=== PATIENT | female | born 1980 | race Caucasian/White ===

== ENCOUNTER → 2018-06-17 | Outpatient (CLI) | payer OTHER | LOC: LAB 15:26 | PROVIDERS: ATTEND Nurse Practitioner Family | DX: N92.6 Irregular menstruation, unspecified (principal) | CPT/HCPCS: 36415; 84703 ==

== ENCOUNTER → 2018-12-05 | Outpatient (CLI) | payer OTHER ==
--- NOTE | 2018-12-05 11:00 | NUR ---
PT AMBULATED TO WS FOR RHOGAM INJECTION.
--- NOTE | 2018-12-05 11:30 | NUR ---
PT AMBULATED TO ROOM 314. RHOGAM INJECTIONS GIVEN IN LT.GM. SEE ADMINISTRATION INTERVENTION FOR FURTHER. PT TOLERATED. AMBULATED TO PRIVATE VEHICLE.
== END ==
LOC: WSo 10:52
PROVIDERS: ATTEND Obstetrics & Gynecology
DX: Z31.82 Encounter for Rh incompatibility status (principal)
CPT/HCPCS: 96372

== ENCOUNTER 2019-01-18 23:42 | Inpatient (IN) | payer OTHER ==
[~2019-01-18] VITALS: Ht 154.9 cm; Wt 115.7 kg
[2019-01-19] VITALS (14 sets, daily range): BP systolic 96–121; BP diastolic 51–80
--- NOTE | 2019-01-19 | NUR ---
SUDARSHAN ASHLEY presented to unit via ambulatory from ED, accompanied by family , with c/o srom around 2315. SUDARSHAN ASHLEY weighed, gowned, voided, and to bed. EFHM and TOCO applied, VS taken. SUDARSHAN ASHLEY oriented to bed controls, call light, TV, heat, and A/C controls.
[2019-01-19] MEDS ORDERED: CITRIC ACID/SOB CIT (BICITRA) 30 ML UDC ONE (00:08)
[2019-01-19] MEDS ORDERED: METOCLOPRAMIDE INJ 10 MG/2 ML (REGLAN) ONE (00:08)
[2019-01-19] MEDS ORDERED: FAMOTIDINE 20MG/2ML IV (PEPCID) ONE (00:09)
--- NOTE | 2019-01-19 00:11 | NUR ---
notified of pt's arrival and exam. order to admit for repeat section received.
[2019-01-19] MEDS ORDERED: LACTATED RINGERS 1,000 ML IV PRN (00:28)
[2019-01-19] MEDS ORDERED: CITRIC ACID/SOB CIT (BICITRA) 30 ML UDC PO ONE (00:30)
[2019-01-19] MEDS ORDERED: FAMOTIDINE 20MG/2ML IV (PEPCID) IV ONE (00:30)
[2019-01-19] MEDS ORDERED: METOCLOPRAMIDE INJ 10 MG/2 ML (REGLAN) IV ONE (00:30)
[2019-01-19 00:45] LABS: BASOPHILS % (AUTO) 0 % (0-10); EOSINOPHILS # (AUTO) 0.1 10^3/uL (0.0-0.3); EOSINOPHILS % (AUTO) 1 % (0-10); HEMATOCRIT 37 % (35-52); HEMOGLOBIN 12.9 G/DL (11.5-16.0); LYMPHOCYTES # (AUTO) 2.1 X 10^3 (1.0-4.0); LYMPHOCYTES % (AUTO) 15 % (12-44); MEAN CORPUSCULAR HEMOGLOBIN 30 PG (25-34); MEAN CORPUSCULAR HGB CONC 35 G/DL (32-36); MEAN CORPUSCULAR VOLUME 84 FL (80-99); MEAN PLATELET VOLUME 8.7 FL (7.4-10.4); MONOCYTES # (AUTO) 0.9 X 10^3 (0.0-1.0); MONOCYTES % (AUTO) 7 % (0-12); NEUTROPHILS # (AUTO) 10.6 X 10^3 (1.8-7.8); NEUTROPHILS % (AUTO) 77 % (42-75); PLATELET COUNT 382 10^3/uL (130-400); RED CELL DISTRIBUTION WIDTH 13.4 % (10.0-14.5); WHITE BLOOD COUNT 13.8 10^3/uL (4.3-11.0)
--- NOTE | 2019-01-19 01:52 | NUR ---
notified that or room is getting prepared.
[2019-01-19] MEDS ORDERED: fentaNYL INJECTION 100 MCG/2 ML AMP ONE (02:03)
[2019-01-19] MEDS ORDERED: OXYTOCIN/NORMAL SALINE 1,000 ML IV ONE (02:04)
[2019-01-19] MEDS ORDERED: D5 LR IV SOLUTION 1,000 ML IV SCH ×2 (02:08→02:10)
[2019-01-19] MEDS ORDERED: metroNIDAZOLE 500MG/100ML IVPB 100 ML IV ONE (02:15)
[2019-01-19] MEDS ORDERED: TETANUS,DIPTH,PERTUSS P/F (BOOSTRIX) 0.5 ML VIAL IM ONE (02:15)
[2019-01-19] MEDS ORDERED: MEASLES,MUMPS,RUBELLA 1 EA INJ SC ONE (02:15)
[2019-01-19] MEDS ORDERED: ONDANSETRON 4 MG/2 ML (SDV) Z0FRAN IVP PRN (02:15)
[2019-01-19] MEDS ORDERED: ceFAZolin INJECTION 2,000 MG in WATER (STERILE) FOR INJECTION 10 ML IV ONE (02:15)
[2019-01-19] MEDS ORDERED: oxyCODONE/APAP 10/325MG (PERCOCET 10) TABLET PO PRN (02:15)
--- NOTE | 2019-01-19 02:15 | History & Physical ---
History and Physical Date Seen by Provider: Jan 19, 2019 Time Seen by Provider: 02:13 This patient is a 38-year-old 1 white female with a due date of 1018 putting her now at 35-2/7 weeks' gestation. She presented with complaint of spontaneous rupture membranes. She had a large gush of clear fluid evaluation here labor and delivery was positive for rupture. Patient's has been otherwise uncomplicated she denies bleeding. GBS culture has not been done yet. She is admitted now for repeat delivery. Allergies are none Medications are vitamins Medical social and surgical histories are per the antepartum record HEENT exam is normal Neck is supple no lymphadenopathy no thyromegaly Abdomen is gravid soft nontender nondistended Extremities show no clubbing or cyanosis. There is no Homans sign. Pelvic exam is deferred. Exam on admission per the labor and delivery nurse confirmed rupture membranes. Cervix was 1 cm very high. Laboratory Tests 01/19/19 00:35 Assessment and plan P PROM at 35-2/7 weeks' gestation in a patient with previous . She is admitted now for repeat delivery. Surgical risks and complications recovery and follow-up have been fully discussed. Patient is ready to proceed. P PROM at 35-2/7 weeks' gestation with a previous delivery Allergies and Home Medications Allergies Coded Allergies: No Known Drug Allergies (Verified Allergy, Unknown, 08/18/09) Patient Home Medication List Home Medication List Reviewed: Yes Clinical Quality Measures DVT/VTE Risk/Contraindication: Risk Factor Score Per Nursin RFS Level Per Nursing on Admit: 2=Moderate VALERIA WARD MD Jan 19, 2019 02:15
[2019-01-19] MEDS ORDERED: DEXAMETHASONE 10 MG/ML (DECADRON) 1 ML VIAL ONE (02:46)
[2019-01-19] MEDS ORDERED: KETOROLAC 30 MG/ML VIAL ONE ×2 (02:46→02:56)
[2019-01-19] MEDS ORDERED: ONDANSETRON 4 MG/2 ML (SDV) Z0FRAN ONE (02:46)
[2019-01-19] MEDS ORDERED: PHENYLEPHRINE 100 MCG/ML 10 ML (ANESTHESIA) SYR ONE ×2 (02:46→02:56)
[2019-01-19] MEDS: KETOROLAC 30 MG/ML VIAL IVP PRN ×3 (03:20→15:52)
[2019-01-19] MEDS ORDERED: ONDANSETRON 4 MG/2 ML (SDV) Z0FRAN IV PRN (03:30)
[2019-01-19] MEDS ORDERED: METOCLOPRAMIDE INJ 10 MG/2 ML (REGLAN) IV PRN (03:30)
[2019-01-19] MEDS ORDERED: NALOXONE 0.4 MG/ML 1 ML (NARCAN) VIAL IV PRN ×2 (03:30)
[2019-01-19] MEDS ORDERED: diphenhydrAMINE 50 MG/ML INJ (BENADRYL) IV PRN (03:30)
--- NOTE | 2019-01-19 03:54 | OPERATIVE REPORT ---
DATE OF SERVICE: 01/19/2019 DELIVERY/OPERATIVE NOTE PREOPERATIVE DIAGNOSIS: A 35 and 2/7 weeks' gestation with previous and PPROM. POSTOPERATIVE DIAGNOSIS: A 35 and 2/7 weeks' gestation with previous and PPROM. OPERATIVE PROCEDURE: Repeat low transverse delivery of a viable male infant with Apgars of 7 and 7 at 1 and 5 minutes respectively. Weight is pending. time of 0255 and a cord blood gas of 7.11. OPERATIVE DESCRIPTION: With the patient in the supine position under satisfactory spinal analgesia, she was positioned supine and then prepped and draped in the usual fashion for abdominal surgery. The towel clamps were placed on the large panniculus at the upper end of the right and left lower quadrants and those were attached to stanchions at the head of the bed to retract the panniculus and expose the lower abdomen. A repeat Pfannenstiel incision was made through the skin with scalpel, the patient's abdomen was entered in the usual manner. Bladder retractor placed into position and clean scalpel used to make a 4 cm hysterotomy incision transversely across the lower uterine segment that was extended by blunt dissection as well, very minimal amniotic fluid was released. A viable male was delivered via the uterine incision. Infant had a nuchal cord x1 that was easily released. The infant was bulb suctioned on delivery of the head and again on completion of the delivery. Umbilical cord was doubly clamped and cut and the infant passed to the bun panner in attendance for delivery. Cord bloods were obtained. Placenta delivered spontaneously [place], it was normal with 3-vessel cord. The uterus was exteriorized and interior wiped clean with a wet laparotomy sponge. Uterine incision closed with running locked suture of 2-0 Vicryl. Hemostasis was complete. The uterus was returned to the abdominal cavity. All blood clot and debris removed from the abdominal cavity. With sponge, needle counts correct, hemostasis assured. The anterior parietal peritoneum was closed with running suture of 2-0 Vicryl. Rectus muscles were closed with that suture as well. The rectus fascia was closed with 2-0 Vicryl, subcutaneous tissue was closed with 2-0 Vicryl and the skin was stapled. Sponge and needle counts were correct on completion of the procedure. Estimated blood loss was around 400 mL. The patient tolerated the procedure well and was transferred to the recovery room in stable condition. The infant had been taken stable to the full term nursery under the care of the bun panner Job ID: [id number] DocumentID: [id number] Dictated Date: 01/19/2019 03:21:35 [employer] Tech Date: 01/19/2019 03:53:08 Dictated By: VALERIA WARD MD MTDD
[2019-01-19] MEDS ORDERED: OXYTOCIN/NORMAL SALINE 500 ML IV ONE (04:20)
--- NOTE | 2019-01-19 04:25 | NUR ---
pt returned to room 308 from recovery. report received from acetone recovery worker. pt orientated to room. pt denies any needs at this time. family let in to be at pt's bed side.
[2019-01-19] MEDS: OXYTOCIN/NORMAL SALINE 500 ML IV SCH (04:30)
--- NOTE | 2019-01-19 05:30 | NUR ---
pericare completed. ff 1 below. moderate rubra noted.
--- NOTE | 2019-01-19 06:38 | NUR ---
pt very tearful about nb's transfer. denies any needs at this time. will continue to monitor.
[2019-01-19] MEDS ORDERED: PREN-8 PO (07:10)
--- NOTE | 2019-01-19 08:50 | NUR ---
PT REMAINS IN BED. VS OBTAINED. INITIAL SHIFT ASSESSMENT COMPLETED; SEE INTERVENTION FOR FURTHER. WILL RETURN SHORTLY WITH SCHEDULED MEDICATIONS. PT DENIES ANY CURRENT NEEDS. CALL LIGHT WITHIN REACH.
--- NOTE | 2019-01-19 09:01 | NUR ---
VISITORS TO PT'S BEDSIDE.
--- NOTE | 2019-01-19 09:18 | NUR ---
RT TO PT'S BEDSIDE TO INITIATE INCENTIVE SPIROMETRY.
[2019-01-19] MEDS: DOCUSATE SODIUM 100 MG (COLACE) CAP PO SCH ×2 (09:37→20:50)
--- NOTE | 2019-01-19 10:50 | NUR ---
DR. WARD CALLED UNIT FOR PT UPDATE. NO NEW ORDERS RECEIVED.
--- NOTE | 2019-01-19 12:35 | NUR ---
PT IN BED. VS OBTAINED. PT ASSISTED UP TO THE BATHROOM. + VOID, + PERICARE PER PT. NEW VPAD AND PANTIES ON. PT BACK TO BED. SCDS ON CALVES BILATERALLY. FRESH ICE WATER PROVIDED. NO NEEDS VOICED. CALL LIGHT WITHIN REACH.
--- NOTE | 2019-01-19 15:54 | NUR ---
ROUTINE TORADOL GIVEN IVP; SEE EMAR FOR FURTHER. VS OBTAINED. VISITORS TO PT'S BEDSIDE. NO NEEDS VOICED AT THIS TIME.
--- NOTE | 2019-01-19 17:52 | NUR ---
BREAST PUMP SET UP FOR PT USE. PT DENIES ANY NEEDS OR QUESTIONS AT THIS TIME.
--- NOTE | 2019-01-19 20:02 | NUR ---
pt resting in bed. assessment completed. encouraged pt to walk in the halls this evening. pt denies any concerns or needs at this time. will continue to monitor.
[2019-01-19] MEDS: IBUPROFEN 800 MG (MOTRIN) TAB PO SCH (21:15)
--- NOTE | 2019-01-19 21:30 | NUR ---
pt up ambulating in the vang. made two laps around nurses station. pt tolerated ambulation well.
--- NOTE | 2019-01-19 22:00 | NUR ---
on unit to round on patient. no new orders received.
[2019-01-20 00:28] VITALS: BP 99/49
[2019-01-20] MEDS: IBUPROFEN 800 MG (MOTRIN) TAB PO SCH ×2 (03:17→07:52)
[2019-01-20 03:26] VITALS: BP 112/56
[2019-01-20] MEDS ORDERED: TETANUS,DIPTH,PERTUSS P/F (BOOSTRIX) 0.5 ML VIAL IM ONE (07:42)
[2019-01-20 07:52] VITALS: BP 113/57
[2019-01-20] MEDS: DOCUSATE SODIUM 100 MG (COLACE) CAP PO SCH (07:52)
--- NOTE | 2019-01-20 07:52 | NUR ---
AM shift assessment completed and vital signs obtained, see interventions. Plan of care reviewed with patient. Patient verbalizes understanding and denies any current questions or concerns at this time. Scheduled Motrin and Colace PO given. TDAP administered, see EMAR, VIS sheet provided to patient. Shower supplies provided.
--- NOTE | 2019-01-20 07:58 | Anesthesia-Regional Post-Op ---
Regional Patient Condition Mental Status: Alert, Oriented x3 Circulation: Same as Pre-Op Headache: Absent Sensation: Full Recovery Motor Block: Absent Post Op Complications Complications None Follow Up Care/Instructions Patient Instructions None needed. Anesthesia/Patient Condition Patient is doing well, no complaints, stable vital signs, no apparent adverse anesthesia problems. No complications reported per nursing. ALOK RENTERIA CRNA Jan 20, 2019 07:58
--- NOTE | 2019-01-20 08:26 | NUR ---
Dr. Zayas here to see patient.
--- NOTE | 2019-01-20 08:34 | Progress Note ---
Standard Progress Note Progress Notes/Assess & Plan Date Seen by a Provider: Jan 19, 2019 Time Seen by a Provider: 22:00 Progress/Assessment & Plan This patient is without complaint. She is ambulating, voiding, tolerating oral intake well has good pain control. She denies chest pain, denies shortness of breath, denies nausea vomiting, and denies headache patient reports that her baby is doing well in the NICU at [facility] in [place]. Vital Signs 01/20/19 03:26 Temp 98.7 Pulse 89 Resp 18 B/P (MAP) 112/56 (74) Pulse Ox 97 O2 Delivery Room Air Vital signs are stable. Patient is afebrile. The abdomen is benign. The surgical incision is clean dry and intact. Extremities show no clubbing or cyanosis. There is no Homans sign. There is minimal pretibial pitting edema. Assessment and plan postoperative day 1 status post repeat delivery about 3 a.m. on this date. Patient is doing well. Her baby is doing well at [facility] VALERIA WARD MD Jan 20, 2019 08:34
[2019-01-20] MEDS: OXYTOCIN/NORMAL SALINE 500 ML IV SCH (08:35)
--- NOTE | 2019-01-20 08:36 | Progress Note ---
Standard Progress Note Progress Notes/Assess & Plan Date Seen by a Provider: Jan 20, 2019 Time Seen by a Provider: 08:34 Progress/Assessment & Plan This patient is without complaint. She is ambulating, voiding, tolerating oral intake well has good pain control. She denies chest pain, denies shortness of breath, denies nausea vomiting, and denies headache patient reports that her baby is doing well in the NICU at [facility] in [place]. Vital Signs 01/20/19 03:26 Temp 98.7 Pulse 89 Resp 18 B/P (MAP) 112/56 (74) Pulse Ox 97 O2 Delivery Room Air Vital signs are stable. Patient is afebrile. The abdomen is benign. The surgical incision is clean dry and intact. Extremities show no clubbing or cyanosis. There is no Homans sign. There is minimal pretibial pitting edema. Assessment and plan postoperative day 1 status post repeat delivery about 3 a.m. on this date. Patient is doing well. Her baby is doing well at [facility] January 20, 2019 This patient is without complaint. She is ablating, voiding, tolerating oral intake well has good pain control. Vital Signs Date Time Temp Pulse Resp B/P (MAP) Pulse Ox O2 Delivery O2 Flow Rate FiO2 01/20/19 03:26 98.7 89 18 112/56 (74) 97 Room Air 01/20/19 00:28 97.8 94 18 99/49 (66) 97 Room Air 01/19/19 20:05 98.7 82 18 116/57 (76) 97 Room Air 01/19/19 15:54 98.9 86 18 116/61 (79) 97 Room Air 01/19/19 12:16 98.6 90 18 104/58 (73) 96 Room Air 01/19/19 08:48 98.2 77 18 108/57 (74) 96 Room Air I & O 01/20/19 07:00 Intake Total 3300 ml Output Total 2000 ml Balance 1300 ml Vital signs are stable. Patient is afebrile. Abdomen is benign. The surgical incision is clean dry and intact. Fundus is firm below the umbilicus and nontender. Extremities show no clubbing cyanosis. There is no Homans sign. There is some pretibial pitting edema that is in the normal range. Assessment and plan postoperative day number 1 status post repeat delivery doing well. Plan is for discharge home with follow-up in clinic. Final Diagnosis Repeat delivery at 35-2/7 weeks' gestation VALERIA WARD MD Jan 20, 2019 08:36
[2019-01-20] MEDS ORDERED: IBUP-1780 PO (08:38)
[2019-01-20] MEDS ORDERED: DOCU100C37 PO (08:38)
[2019-01-20] MEDS ORDERED: OXYC1TAB12 PO (08:38)
--- NOTE | 2019-01-20 08:39 | Discharge Instructions ---
Discharge Instructions Reconcile Patient Problems Problems Reviewed?: Yes Discharge Medications New, Converted or Re-Newed RX: RX on Chart Patient Instructions Patient Instructions: As directed Return to The Hospital For: As directed Activity & Diet Discharge Diet: No Restrictions Activity as Tolerated: No Orders-Post D/C & Referrals Follow Up Appt: As directed Call to make follow up appt. for patient in 4 weeks. Wound Care: Return to clinic on Sunday, January 22, 2019 at 930 a.m. for staple removal Activity Per routine post instructions. Please call in RX to patient pharmacy. Diet as tolerated Patient may shower or tub bathe as desired. Continue home meds VALERIA WARD MD Jan 20, 2019 08:39
--- NOTE | 2019-01-20 09:53 | NUR ---
Discharge instructions and medications reviewed with patient both written and verbally. Patient verbalizes understanding and denies any current questions or concerns at this time.
--- NOTE | 2019-01-20 10:04 | NUR ---
Patient discharged at this time via wheelchair and accompanied down to awaiting private vehicle by this RN. No signs or symptoms of distress noted.
== END 2019-01-20 10:04 | disposition home or self-care (01) | DRG 788 ==
LOC: WSo 23:42 → LDRP 23:45 → WSo 01-19 00:57 → LDRP 01-19 00:58
PROVIDERS: ADMIT Obstetrics & Gynecology; ATTEND Obstetrics & Gynecology
PROC: 10D00Z1 Extraction of Products of Conception, Low, Open Approach (ICD-10-PCS; principal; 2019-01-19 02:21)
DX: O42.013 Preterm premature rupture of membranes, onset of labor within 24 hours of rupture, third trimester (principal); O34.211 Maternal care for low transverse scar from previous cesarean delivery; O69.81X0 Labor and delivery complicated by cord around neck, without compression, not applicable or unspecified; Z37.0 Single live birth; Z3A.35 35 weeks gestation of pregnancy; Z23 Encounter for immunization
CPT/HCPCS: 36415; 85025; 86850; 86900; 86901; 90715; 99212

== ENCOUNTER → 2021-02-22 | Outpatient (CLI) | payer OTHER ==
[~2021-02-22] MED LIST: DOCU100C37 PO; IBUP-1780 PO; OXYC1TAB12 PO; PREN-8 PO
--- NOTE | 2021-02-22 18:16 | Diagnostic Imaging Report ---
INDICATION: Routine screening. COMPARISON: No prior mammograms are available for comparison. This is a baseline study. 2-D and 3-D bilateral screening mammography was performed with CAD. Scattered fibroglandular densities are identified bilaterally. There is an intramammary lymph node in the upper left breast. No spiculated masses or malignant-appearing microcalcifications are seen. Axillae are unremarkable. IMPRESSION: BI-RADS Category 1 No mammographic features suspicious for malignancy are identified. ACR BI-RADS Category 1: Negative. Result letter will be mailed to the patient. Note: At least 10% of breast cancer is not imaged by mammography. Dictated by: Dictated on workstation # [id number]
== END ==
LOC: RAD 12:45
PROVIDERS: ATTEND Obstetrics & Gynecology
DX: Z12.31 Encounter for screening mammogram for malignant neoplasm of breast (principal)
CPT/HCPCS: 77063; 77067